=== PATIENT | male | born 1970 ===

== ENCOUNTER 2016-05-13 20:09 | Emergency (ER) | payer OTHER ==
[2016-05-13 20:26] VITALS: BMI 34.9
[2016-05-13] MEDS ORDERED: Azithromycin 500MG/NS 250ml 250 ML IVPB STA (22:40)
[2016-05-13] MEDS ORDERED: cefTRIAXone 1 gm 100 ML IVPB STA (22:40)
[2016-05-13 23:26] VITALS: O2SAT 97
[2016-05-13 23:29] LABS: ADD MANUAL DIFF? NO
[2016-05-13 23:34] LABS: BASO # 0.03 K/mm3 (0.0-2.0); BASO % 0.4 % (0.0-3.0); EOS # 0.2 (0.0-0.7); EOS % 2.8 % (1.5-5.0); GRAN # 4.79 (1.4-6.5); GRAN % 66.8 % (50.0-68.0); LYMPH # 1.7 (1.2-3.4); LYMPH % 23.2 % (22.0-35.0); MEAN CELL VOLUME 86.7 fL (80.0-105.0); MEAN CORPUSCULAR HEMOGLOBIN 29.4 pg (25.0-35.0); MEAN PLATELET VOLUME 10.3 fl (7.0-11.0); MONO # 0.5 (0.1-0.6); MONO % 6.8 % (1.0-6.0); PLATELET COUNT 216 10^3/uL (120.0-450.0); RED CELL DISTRIBUTION WIDTH 13.4 % (11.5-14.5); WHITE BLOOD COUNT 7.2 10^3/ul (4.5-11.0)
[2016-05-13 23:42] LABS: ALB/GLOB RATIO 1.2 (1.1-1.8); ALKALINE PHOSPHATASE 88 U/L (38-133); ALT/SGPT 29 U/L (7-56); AST/SGOT 24 U/L (15-59); BILIRUBIN,TOTAL 0.6 mg/dL (0.2-1.3); BLOOD UREA NITROGEN 18 mg/dL (7-21); CALCIUM 9.4 mg/dL (8.4-10.5); CARBON DIOXIDE 26 mmol/L (21-33); CHLORIDE 102 mmol/L (98-107); GFR AFRICAN-AMERICAN > 60; GLUCOSE,RANDOM 103 mg/dL (70-110); POTASSIUM 3.6 mmol/L (3.6-5.0); SODIUM 138 mmol/L (132-148); TOTAL PROTEIN 7.6 g/dL (5.8-8.3)
[2016-05-13 23:52] LABS: VENOUS BLOOD GAS BASE EXCESS 0.3 mmol/L (0.0-2.0); VENOUS BLOOD PH 7.35 (7.32-7.43)
--- NOTE | 2016-05-14 01:25 | ED PDOC ---
Arrival/HPI - General Chief Complaint: Cough, Cold, Congestion Time Seen by Provider: 05/13/16 20:49 Historian: Patient EM Caveat: Other - History of Present Illness Narrative History of Present Illness (Text): 45-year-old male presents today with a three-day history of productive cough fever and congestion. Patient states everyone at work has been sick with similar symptoms. Patient states he's been feeling short of breath after he coughs a lot. No medications were taken for fever at home. He denies nausea vomiting or diarrhea. He denies abdominal pain. Denies chest pain. Patient denies dizziness or weakness. Patient states he did not get his flu shot this year. Past Medical History - Provider Review Nursing Documentation Reviewed: Yes - Travel History Have you recently traveled outside [place] w/in the past 3 mons?: No - Infectious Disease Hx of Infectious Diseases: None - Tetanus Immunization Tetanus Immunization: Unknown - Cardiac Hx Cardiac Disorders: No - Pulmonary Hx Asthma: Yes - Neurological HX Cerebrovascular Accident: No - HEENT Hx HEENT Disorder: No - Renal Hx Renal Failure: No - Endocrine/Metabolic Hx Diabetes Mellitus Type 1: No Hx Diabetes Mellitus Type 2: No Hx Hypothyroidism: No - Hematological/Oncological Hx Blood Disorders: No Hx AIDS: No Hx Anemia: No Hx Cancer: No Hx Chemotherapy: No Hx Cirrhosis: No Hx Hemophilia: No Hx Hepatitis A: No Hx Hepatitis B: No Hx Hepatitis C: No Hx Metastasis: No Hx Shingles: No Hx Sickle Cell Disease: No Hx Unexplained Bleeding: No - Integumentary Hx Dermatological Disorder: No Hx Basal Cell Carcinoma: No Hx Eczema: No Hx Melanoma: No Hx Psoriasis: No Hx Squamous Cell Carcinoma: No - Musculoskeletal/Rheumatological Hx Arthritis: Yes - Gastrointestinal Hx Gastrointestinal Disorders: No Hx Colostomy: No Hx Crohn's Disease: No Hx Diverticulitis: No Hx Gall Bladder Disease: No Hx Gastroesophageal Reflux: No Hx Ileostomy: No Hx Liver Failure: No Hx Pancreatitis: No HX Swallowing Problems: No - Genitourinary/Gynecological Hx Genitourinary Disorders: No Hx Hematuria: No Hx Incontinence: No Hx Prostate Problems: No Hx Sexually Transmitted Diseases: No Hx Urinary Tract Infection: No - Psychiatric Hx Psychophysiologic Disorder: No Hx Depression: No Hx Emotional Abuse: No Hx Physical Abuse: No Hx Substance Use: No - Past Surgical History Past Surgical History: No Previous - Surgical History Hx Orthopedic Surgery: Yes (KNEE) - Anesthesia Hx Anesthesia: Yes Hx Anesthesia Reactions: No Hx Malignant Hyperthermia: No - Suicidal Assessment Feels Threatened In Home Enviroment: No Family/Social History - Physician Review Nursing Documentation Reviewed: Yes Family/Social History: Unknown Family HX Smoking Status: Current Some Days Smoker Hx Alcohol Use: Yes Hx Substance Use: No Hx Substance Use Treatment: No Allergies/Home Meds Allergies/Adverse Reactions: Allergies No Known Allergies Allergy (Verified 04/19/16 22:43) Review of Systems - Review of Systems Constitutional: Fatigue, Fevers ENT: Sore Throat, Sinus Congestion Respiratory: SOB, Cough Cardiovascular: absent: Chest Pain, Palpitations Gastrointestinal: absent: Abdominal Pain, Nausea, Vomiting Genitourinary Male: absent: Dysuria Musculoskeletal: absent: Arthralgias, Back Pain, Neck Pain Skin: absent: Rash, Pruritis Neurological: absent: Headache, Dizziness Psychiatric: absent: Anxiety, Depression Physical Exam Vital Signs Reviewed: Yes Vital Signs Temp Pulse Resp BP Pulse Ox 05/14/16 01:00 97 F L 77 16 131/70 97 05/13/16 23:25 98.0 F 97 H 20 129/73 97 05/13/16 21:31 100.9 F H 05/13/16 21:22 100.9 F H 05/13/16 20:26 100.9 F H 129 H 20 152/77 H 95 Temperature: Afebrile Blood Pressure: Hypertensive Pulse: Tachycardic Respiratory Rate: Normal Appearance: Positive for: Well-Appearing, Non-Toxic, Comfortable Pain Distress: None Mental Status: Positive for: Alert and Oriented X 3 - Systems Exam Head: Present: Atraumatic Mouth: Present: Moist Mucous Membranes Pharnyx: Present: Normal. No: ERYTHEMA, EXUDATE, TONSILS ENLARGED, Peritonsilar Swelling, Uvular Deviation, Muffled/Hoarse Voice Nose (External): Present: Atraumatic Nose (Internal): Present: Normal Inspection Neck: Present: Normal Range of Motion, Trachea Midline. No: Lymphadenopathy Respiratory/Chest: Present: Rhonchi. No: Clear to Auscultation, Respiratory Distress, Wheezes, Decreased Breath Sounds, Tender to Palpation Cardiovascular: Present: Tachycardic. No: Murmurs Abdomen: No: Tenderness Upper Extremity: Present: Normal ROM Lower Extremity: Present: Normal ROM Neurological: Present: GCS=15, Speech Normal Skin: Present: Warm, Dry, Normal Color. No: Rashes Psychiatric: Present: Alert, Oriented x 3 Medical Decision Making ED Course and Treatment: 45-year-old male with cough and fever 3 days Patient febrile, tachycardic, saturating at 95% on room air Chest x-ray shows a left lower lobe infiltrate CBC: wnl CMP: wnl Lactate: 1.0 Rocephin and Zithromax given IV Patient refused admission to the hospital states he feels much better and wants to go home. Patient reassessment: Patient's vitals have improved although he remains hypoxic at 92-94% on room air. Patient has been advised to not leave the emergency room but has decided to go AGAINST MEDICAL ADVICE. The patient possesses capacity to make decisions and has voiced understanding to all my warnings of potential worsening of the condition for which medical care was sought. I have discussed all known and potential risks and consequences to the patient leaving AGAINST MEDICAL ADVICE. Patient is leaving against medical advise. AMA form signed. witness by KRISHNA Mcmillan. I will give the patient a prescription for Zithromax Z-Randy. I've advised follow up his primary care physician on Monday. I've advised immediate return if he changes his mind or if any concerning symptoms develop. Patient states he will return if anything worsens. Impression: Pneumonia, hypoxia Return immediately if you wish to continue your care Zithromax Z-Randy take as directed Motrin every 6 hours as needed for pain/fever reduction Increase fluids Return immediately if symptoms worsen persist or if new concerning symptoms develop - Lab Interpretations Lab Results: 05/13/16 23:28 05/13/16 23:28 Lab Results 05/13/16 23:28: WBC 7.2, RBC 4.96, Hgb 14.6, Hct 43.0, MCV 86.7, MCH 29.4, MCHC 34.0, RDW 13.4, Plt Count 216, MPV 10.3, Gran % 66.8, Lymph % (Auto) 23.2, [place] % (Auto) 6.8 H, Eos % (Auto) 2.8, Baso % (Auto) 0.4, Gran # 4.79, Lymph # 1.7, [place] # 0.5, Eos # 0.2, Baso # 0.03, pO2 51, VBG pH 7.35, VBG pCO2 48.0, VBG HCO3 26.5, VBG Total CO2 28.0, VBG O2 Sat (Calc) 91.1 H, VBG Base Excess 0.3, VBG Potassium 3.6, Glucose 108, Lactate 1.0, FiO2 21.0, Sodium 139.0, Potassium 3.6, Chloride 105.0, Carbon Dioxide 26, Anion Gap 14, BUN 18, Creatinine 1.0, Est GFR ( Amer) > 60, Est GFR (Non-Af Amer) > 60, Random Glucose 103, Calcium 9.4, Total Bilirubin 0.6, AST 24, ALT 29, Alkaline Phosphatase 88, Total Protein 7.6, Albumin 4.1, Globulin 3.5, Albumin/Globulin Ratio 1.2, Venous Blood Potassium 3.6 05/13/16 20:58: Influenza Typ A,B (EIA) Negative for flu a/b - RAD Interpretation Radiology Orders: 05/13/16 20:50 CHEST TWO VIEWS (PA/LAT) [RAD] Stat - Medication Orders Current Medication Orders: Discontinued Medications Acetaminophen (Tylenol 325mg Tab) 975 mg PO STAT STA Stop: 05/13/16 20:52 Last Admin: 05/13/16 21:22 Dose: 975 MG MAR Pain/Vitals Document 05/13/16 21:22 HI (Rec: 05/13/16 21:23 HI [id number]) Pain Reassessment Is This A Pain ReAssessment? No Sleep Is patient sleeping during reassessment? No Presence of Pain Presence of Pain No Vitals Temperature (97.6 F-99.6 F) 100.9 F Temperature Source Oral Azithromycin (Zithromax 500mg In Ns) 250 mls @ 167 mls/hr IVPB STAT STA PRN Reason: Protocol Stop: 05/14/16 00:09 Last Admin: 05/14/16 00:28 Dose: 167 MLS/HR eMAR Start Stop Document 05/14/16 00:28 LAC (Rec: 05/14/16 00:29 LAC [id number]) Intravenous Solution Start Date 05/14/16 Start Time 00:29 End Date 05/14/16 End time 02:29 Total Infusion Time 120 Ceftriaxone Sodium (Rocephin 1 Gram Ivpb) 100 mls @ 200 mls/hr IVPB STAT STA PRN Reason: Protocol Stop: 05/13/16 23:09 Last Admin: 05/13/16 23:21 Dose: 200 MLS/HR eMAR Start Stop Document 05/13/16 23:21 HI (Rec: 05/13/16 23:21 RI [id number]) Intravenous Solution Start Date 05/13/16 Start Time 23:21 Ibuprofen (Motrin Tab) 600 mg PO STAT STA Stop: 05/13/16 21:19 Last Admin: 05/13/16 21:31 Dose: 600 MG MAR Pain/Vitals Document 05/13/16 21:31 HI (Rec: 05/13/16 21:31 RI [id number]) Vitals Temperature (97.6 F-99.6 F) 100.9 F Temperature Source Oral Disposition/Present on Arrival - Present on Arrival Any Indicators Present on Arrival: No History of DVT/PE: No History of Uncontrolled Diabetes: No Urinary Catheter: No History of Decub. Ulcer: No History Surgical Site Infection Following: None - Disposition Have Diagnosis and Disposition been Completed?: Yes Diagnosis: Pneumonia Disposition: AGAINST MEDICAL ADVICE Disposition Time: 01:52 Patient Plan: Other (AMA) Patient Problems: Current Active Problems Problem Status Diagnosed Pneumonia Acute Condition: GUARDED Discharge Instructions (ExitCare): Pneumonia (ED) Additional Instructions: Return immediately if you wish to continue your care Zithromax Z-Randy take as directed Motrin every 6 hours as needed for pain/fever reduction Increase fluids Return immediately if symptoms worsen persist or if new concerning symptoms develop Prescriptions: Ibuprofen [Motrin] 600 mg PO Q6H PRN #20 tab PRN Reason: pain/fever reduction Azithromycin [Zithromax] 250 mg PO DAILY #6 tab Referrals: PCP,NO [Primary Care Provider] - Follow up with primary [facility] [Outside] - Follow up with primary Ita Pope MD [Staff Provider] - Follow up with primary Forms: WORK NOTE
[2016-05-14 01:52] VITALS: BP 131/70; PULSE 77; RESP 16; TEMP 97
--- NOTE | 2016-05-14 13:15 | RAD ---
HISTORY: cough/fever COMPARISON: No prior. TECHNIQUE: Chest PA and lateral FINDINGS: LUNGS: No active pulmonary disease. PLEURA: No significant pleural effusion identified. No pneumothorax apparent. CARDIOVASCULAR: Normal. OSSEOUS STRUCTURES: No significant abnormalities. VISUALIZED UPPER ABDOMEN: Normal. OTHER FINDINGS: None. IMPRESSION: No active disease.
== END 2016-05-14 15:21 | disposition left against medical advice (07) ==
LOC: ED 20:09
DX: J18.9 Pneumonia, unspecified organism (principal); F17.210 Nicotine dependence, cigarettes, uncomplicated
CPT/HCPCS: 71020; 80053; 82803; 85025; 87040; 87804; 96365; 96366; 96375; 99284; J0456; J0696

== ENCOUNTER 2016-05-16 12:54 | Emergency (ER) | payer OTHER ==
[2016-05-16 13:04] VITALS: BMI 33.4
[2016-05-16 13:05] VITALS: PULSE 89; TEMP 98.2
[2016-05-16] MEDS ORDERED: Sodium Chloride 0.9% 1,000 ML IV STA (13:11)
[2016-05-16 13:35] LABS: ADD MANUAL DIFF? NO
[2016-05-16 13:41] LABS: BASO # 0.02 K/mm3 (0.0-2.0); BASO % 0.4 % (0.0-3.0); EOS # 0.3 (0.0-0.7); EOS % 5.4 % (1.5-5.0); GRAN # 2.32 (1.4-6.5); GRAN % 41.6 % (50.0-68.0); HEMATOCRIT 43.8 % (42.0-52.0); LYMPH # 2.8 (1.2-3.4); LYMPH % 50.6 % (22.0-35.0); MEAN CELL VOLUME 86.7 fL (80.0-105.0); MEAN CORPUSCULAR HEMOGLOBIN 29.7 pg (25.0-35.0); MEAN CORPUSCULAR HGB CONC 34.2 g/dl (31.0-37.0); MEAN PLATELET VOLUME 10.2 fl (7.0-11.0); MONO # 0.1 (0.1-0.6); PLATELET COUNT 196 10^3/uL (120.0-450.0); RED CELL DISTRIBUTION WIDTH 13.4 % (11.5-14.5); WHITE BLOOD COUNT 5.6 10^3/ul (4.5-11.0)
[2016-05-16 13:48] LABS: ALB/GLOB RATIO 1.3 (1.1-1.8); ALKALINE PHOSPHATASE 86 U/L (38-133); ALT/SGPT 35 U/L (7-56); AST/SGOT 37 U/L (15-59); BILIRUBIN,TOTAL 0.7 mg/dL (0.2-1.3); BLOOD UREA NITROGEN 12 mg/dL (7-21); CALCIUM 9.1 mg/dL (8.4-10.5); CARBON DIOXIDE 24 mmol/L (21-33); CHLORIDE 104 mmol/L (95-110); GFR AFRICAN-AMERICAN > 60; GLUCOSE,RANDOM 148 mg/dL (70-110); POTASSIUM 3.4 mmol/L (3.6-5.0); SODIUM 141 mmol/L (132-148); TOTAL PROTEIN 7.5 g/dL (5.8-8.3)
--- NOTE | 2016-05-16 14:37 | RAD ---
HISTORY: cough/fever COMPARISON: 05/13/2016 TECHNIQUE: Chest PA and lateral FINDINGS: LUNGS: No active pulmonary disease. PLEURA: No significant pleural effusion identified. No pneumothorax apparent. CARDIOVASCULAR: Normal. OSSEOUS STRUCTURES: No significant abnormalities. VISUALIZED UPPER ABDOMEN: Normal. OTHER FINDINGS: None. IMPRESSION: No active disease.
[2016-05-16] MEDS ORDERED: Albuterol-Ipratrop 3 mg / 0.5 (3 ml) UD IH STA (14:59)
--- NOTE | 2016-05-16 16:41 | ED PDOC ---
Arrival/HPI - General Chief Complaint: Cough, Cold, Congestion Time Seen by Provider: 05/16/16 13:11 Historian: Patient - History of Present Illness Narrative History of Present Illness (Text): 05/16/16 16:41 45-year-old male presents today with cough and wheezing. Patient was seen in the ER 2 days ago and signed out AGAINST MEDICAL ADVICE for pneumonia. Patient states he is feeling better but he went to get a physical today and they told him he needed medical clearance. Patient presents today complaining of wheezing and continued cough. Denies fevers at home. Patient states he is taking antibiotics as prescribed. No chest pain. No other complaints. Past Medical History - Provider Review Nursing Documentation Reviewed: Yes - Travel History Have you recently traveled outside [place] w/in the past 3 mons?: No - Infectious Disease Hx of Infectious Diseases: None - Tetanus Immunization Tetanus Immunization: Unknown - Cardiac Hx Cardiac Disorders: No - Pulmonary Hx Respiratory Disorders: Yes Hx Asthma: Yes - Neurological HX Cerebrovascular Accident: No - HEENT Hx HEENT Disorder: No - Renal Hx Renal Disorder: No Hx Renal Failure: No - Endocrine/Metabolic Hx Endocrine Disorders: No Hx Diabetes Mellitus Type 1: No Hx Diabetes Mellitus Type 2: No Hx Hypothyroidism: No - Hematological/Oncological Hx Blood Disorders: No Hx AIDS: No Hx Anemia: No Hx Cancer: No Hx Chemotherapy: No Hx Cirrhosis: No Hx Hemophilia: No Hx Hepatitis A: No Hx Hepatitis B: No Hx Hepatitis C: No Hx Metastasis: No Hx Shingles: No Hx Sickle Cell Disease: No Hx Unexplained Bleeding: No - Integumentary Hx Dermatological Disorder: No Hx Basal Cell Carcinoma: No Hx Eczema: No Hx Melanoma: No Hx Psoriasis: No Hx Squamous Cell Carcinoma: No - Musculoskeletal/Rheumatological Hx Musculoskeletal Disorders: Yes Hx Arthritis: Yes - Gastrointestinal Hx Gastrointestinal Disorders: No Hx Colostomy: No Hx Crohn's Disease: No Hx Diverticulitis: No Hx Gall Bladder Disease: No Hx Gastroesophageal Reflux: No Hx Ileostomy: No Hx Liver Failure: No Hx Pancreatitis: No HX Swallowing Problems: No - Genitourinary/Gynecological Hx Genitourinary Disorders: No Hx Hematuria: No Hx Incontinence: No Hx Prostate Problems: No Hx Sexually Transmitted Diseases: No Hx Urinary Tract Infection: No - Psychiatric Hx Psychophysiologic Disorder: No Hx Depression: No Hx Emotional Abuse: No Hx Physical Abuse: No Hx Substance Use: No - Past Surgical History Past Surgical History: No Previous - Surgical History Hx Orthopedic Surgery: Yes (KNEE) - Anesthesia Hx Anesthesia: Yes Hx Anesthesia Reactions: No Hx Malignant Hyperthermia: No - Suicidal Assessment Feels Threatened In Home Enviroment: No Family/Social History - Physician Review Nursing Documentation Reviewed: Yes Family/Social History: Unknown Family HX Smoking Status: Former Smoker Hx Alcohol Use: Yes Frequency of alcohol use: Socially Hx Substance Use: No Hx Substance Use Treatment: No Allergies/Home Meds Allergies/Adverse Reactions: Allergies No Known Allergies Allergy (Verified 05/16/16 13:04) Review of Systems - Review of Systems Constitutional: absent: Fatigue, Fevers ENT: Sinus Congestion. absent: Sore Throat Respiratory: Cough, Wheezing. absent: SOB Cardiovascular: absent: Chest Pain, Palpitations Gastrointestinal: absent: Abdominal Pain, Diarrhea, Nausea, Vomiting Genitourinary Male: absent: Dysuria Musculoskeletal: absent: Arthralgias, Back Pain, Neck Pain Neurological: absent: Headache, Dizziness Psychiatric: absent: Anxiety, Depression Physical Exam Vital Signs Reviewed: Yes Vital Signs Temp Pulse Resp BP Pulse Ox 05/16/16 13:05 98.2 F 89 16 121/84 95 Temperature: Afebrile Blood Pressure: Normal Pulse: Regular Respiratory Rate: Normal Appearance: Positive for: Well-Appearing, Non-Toxic, Comfortable Pain Distress: None Mental Status: Positive for: Alert and Oriented X 3 - Systems Exam Head: Present: Atraumatic Mouth: Present: Moist Mucous Membranes Neck: Present: Normal Range of Motion Respiratory/Chest: Present: Clear to Auscultation, Good Air Exchange. No: Respiratory Distress, Accessory Muscle Use Cardiovascular: Present: Regular Rate and Rhythm, Normal S1, S2. No: Murmurs Abdomen: No: Tenderness Lower Extremity: No: Edema Skin: Present: Warm, Dry, Normal Color. No: Rashes Psychiatric: Present: Alert, Oriented x 3 Medical Decision Making ED Course and Treatment: 05/16/16 Patient is nontoxic well-appearing in no distress. Vital signs are stable. CBC within normal limits CMP: glucose; 148 Chest x-ray no infiltrate or effusion Patient with wheezing bilaterally: Albuterol and prednisone given by mouth Patient reassessment: Lungs are clear to auscultation. Patient feeling better after medications. I advised continuing antibiotics as prescribed taking albuterol and prednisone as prescribed. Advised follow-up with the PMD. Advised immediate return is symptoms worsen persist or if new concerning symptoms develop Patient verbalizes understanding of discharge instructions and need for immediate followup. IMPRESSION; bronchitis Continue antibiotics as prescribed Use the nebulizer 3 times daily as needed for cough Prednisone daily 4 days Follow-up with primary care physician/clinic within the next 2 days Return immediately if symptoms worsen persist or if new concerning symptoms develop - Lab Interpretations Lab Results: 05/16/16 13:20 05/16/16 13:20 Lab Results 05/16/16 13:20: WBC 5.6 D, RBC 5.05, Hgb 15.0, Hct 43.8, MCV 86.7, MCH 29.7, MCHC 34.2, RDW 13.4, Plt Count 196, MPV 10.2, Gran % 41.6 L, Lymph % (Auto) 50.6 H, [place] % (Auto) 2.0, Eos % (Auto) 5.4 H, Baso % (Auto) 0.4, Gran # 2.32, Lymph # 2.8, [place] # 0.1, Eos # 0.3, Baso # 0.02, Sodium 141, Potassium 3.4 L, Chloride 104, Carbon Dioxide 24, Anion Gap 16, BUN 12, Creatinine 0.8, Est GFR ( Amer) > 60, Est GFR (Non-Af Amer) > 60, Random Glucose 148 H, Calcium 9.1, Total Bilirubin 0.7, AST 37, ALT 35, Alkaline Phosphatase 86, Total Protein 7.5, Albumin 4.3, Globulin 3.2, Albumin/Globulin Ratio 1.3 - RAD Interpretation Radiology Orders: 05/16/16 13:11 CHEST TWO VIEWS (PA/LAT) [RAD] Stat - Medication Orders Current Medication Orders: Discontinued Medications Albuterol/Ipratropium (Duoneb 3 Mg/0.5 Mg (3 Ml) Ud) 3 ml IH STAT STA Stop: 05/16/16 15:00 Last Admin: 05/16/16 15:37 Dose: 3 ML Sodium Chloride (Sodium Chloride 0.9%) 1,000 mls @ 999 mls/hr IV .Q1H1M STA Stop: 05/16/16 14:11 Last Admin: 05/16/16 13:30 Dose: 999 MLS/HR eMAR Start Stop Document 05/16/16 13:30 SE (Rec: 05/16/16 13:30 SE [id number]) Intravenous Solution Start Date 05/16/16 Start Time 13:30 Prednisone (Prednisone Tab) 60 mg PO STAT ONE Stop: 05/16/16 15:00 Last Admin: 05/16/16 15:36 Dose: 60 MG Disposition/Present on Arrival - Present on Arrival Any Indicators Present on Arrival: No History of DVT/PE: No History of Uncontrolled Diabetes: No Urinary Catheter: No History of Decub. Ulcer: No History Surgical Site Infection Following: None - Disposition Have Diagnosis and Disposition been Completed?: Yes Diagnosis: Bronchitis Disposition: HOME/ ROUTINE Disposition Time: 16:00 Patient Plan: Discharge Patient Problems: Current Active Problems Problem Status Diagnosed Pneumonia Acute Condition: GOOD Discharge Instructions (ExitCare): Acute Bronchitis (ED) Additional Instructions: Continue antibiotics as prescribed Use the nebulizer 3 times daily as needed for cough Prednisone daily 4 days Follow-up with primary care physician/clinic within the next 2 days Return immediately if symptoms worsen persist or if new concerning symptoms develop Prescriptions: Albuterol HFA [Ventolin HFA 90 mcg/actuation (8 g)] 2 puff IH [id number] PRN #1 inhaler PRN Reason: Cough Albuterol 0.083% [Albuterol 0.083% Inhal Teresa (2.5 mg/3 ml) UD] 1 vial IH TID PRN #1 packet PRN Reason: Cough predniSONE [predniSONE Tab] 3 tab PO DAILY #12 tab Referrals: [facility] [place]] - Follow up with primary Paul Weiner MD [Staff Provider] - Follow up with primary Forms: WORK NOTE
[2016-05-16 16:51] VITALS: BP 117/74; RESP 18; O2SAT 98
== END 2016-05-16 16:52 | disposition home or self-care (01) ==
LOC: ED 12:54
DX: J40 Bronchitis, not specified as acute or chronic (principal)
CPT/HCPCS: 71020; 80053; 85025; 99283; J7040

== ENCOUNTER 2016-06-27 09:41 | Emergency (ER) | payer OTHER ==
[2016-06-27 10:06] VITALS: BMI 32.3
[2016-06-27 10:10] VITALS: BP 131/84; PULSE 78; RESP 18; TEMP 98.2; O2SAT 97
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
--- NOTE | 2016-06-27 12:59 | RAD ---
PROCEDURE: Cervical Spine Radiographs. HISTORY: Pain. COMPARISON: None. FINDINGS: BONES: Alignment maintained. No fracture. Dens Intact. DISC SPACES: Normal. SOFT TISSUES: Normal. No prevertebral soft tissue swelling. OTHER FINDINGS: None. IMPRESSION: Normal cervical spine radiographs
== END 2016-06-27 12:44 | disposition home or self-care (01) ==
LOC: ED 09:41
DX: S13.9XXA Sprain of joints and ligaments of unspecified parts of neck, initial encounter (principal); V49.9XXA Car occupant (driver) (passenger) injured in unspecified traffic accident, initial encounter; M54.9 Dorsalgia, unspecified
CPT/HCPCS: 72050; 72110; 96372; 99284; J1885

== ENCOUNTER 2017-01-29 19:12 | Emergency (ER) | payer OTHER ==
[2017-01-29 19:12] VITALS: BMI 32.3
[2017-01-29 19:27] VITALS: BP 122/81; TEMP 99
[2017-01-29] MEDS ORDERED: Amoxicillin-Clav 875-125 mg Tab PO STA (19:34)
--- NOTE | 2017-01-29 19:34 | ED PDOC ---
Arrival/HPI - General Historian: Patient <Edward Connelly - Last Filed: 01/29/17 19:52> <Jonny Reyes - Last Filed: 01/29/17 20:00> - General Chief Complaint: Eye Problem Time Seen by Provider: 01/29/17 19:27 - History of Present Illness Narrative History of Present Illness (Text): 01/29/17 19:27 46 year old male, pmh including asthma, nkda, complaining of lt. upper eyelid swelling and pain x 1 day with no fall or trauma. Aching pain, no painful movement of the eye, no change in vision, no fever or chills, no palpitation, no cough, no shortness of breath, no numbness or tingling, n other medical or psychological complaints. (Edward Connelly) Past Medical History - Provider Review Nursing Documentation Reviewed: Yes - Infectious Disease Hx of Infectious Diseases: None - Tetanus Immunization Tetanus Immunization: Unknown - Cardiac Hx Cardiac Disorders: No - Pulmonary Hx Respiratory Disorders: Yes Hx Asthma: Yes - Neurological HX Cerebrovascular Accident: No - HEENT Hx HEENT Disorder: No - Renal Hx Renal Disorder: No Hx Renal Failure: No - Endocrine/Metabolic Hx Endocrine Disorders: No Hx Diabetes Mellitus Type 1: No Hx Diabetes Mellitus Type 2: No Hx Hypothyroidism: No - Hematological/Oncological Hx Blood Disorders: No Hx AIDS: No Hx Anemia: No Hx Cancer: No Hx Chemotherapy: No Hx Cirrhosis: No Hx Hemophilia: No Hx Hepatitis A: No Hx Hepatitis B: No Hx Hepatitis C: No Hx Metastasis: No Hx Shingles: No Hx Sickle Cell Disease: No Hx Unexplained Bleeding: No - Integumentary Hx Dermatological Disorder: No Hx Basal Cell Carcinoma: No Hx Eczema: No Hx Melanoma: No Hx Psoriasis: No Hx Squamous Cell Carcinoma: No - Musculoskeletal/Rheumatological Hx Musculoskeletal Disorders: Yes Hx Arthritis: Yes - Gastrointestinal Hx Gastrointestinal Disorders: No Hx Colostomy: No Hx Crohn's Disease: No Hx Diverticulitis: No Hx Gall Bladder Disease: No Hx Gastroesophageal Reflux: No Hx Ileostomy: No Hx Liver Failure: No Hx Pancreatitis: No HX Swallowing Problems: No - Genitourinary/Gynecological Hx Genitourinary Disorders: No Hx Hematuria: No Hx Incontinence: No Hx Prostate Problems: No Hx Sexually Transmitted Diseases: No Hx Urinary Tract Infection: No - Psychiatric Hx Psychophysiologic Disorder: No Hx Depression: No Hx Emotional Abuse: No Hx Physical Abuse: No Hx Substance Use: No - Past Surgical History Past Surgical History: No Previous - Surgical History Hx Orthopedic Surgery: Yes (KNEE) - Anesthesia Hx Anesthesia: Yes Hx Anesthesia Reactions: No Hx Malignant Hyperthermia: No - Suicidal Assessment Feels Threatened In Home Enviroment: No <Edward Connelly - Last Filed: 01/29/17 19:52> Family/Social History - Physician Review Nursing Documentation Reviewed: Yes Family/Social History: Unknown Family HX Smoking Status: Light Smoker < 10 Cigarettes Daily Hx Alcohol Use: Yes Hx Substance Use: No Hx Substance Use Treatment: No <Edward Connelly - Last Filed: 01/29/17 19:52> Allergies/Home Meds <Edward Connelly - Last Filed: 01/29/17 19:52> <Jonny Reyes - Last Filed: 01/29/17 20:00> Allergies/Adverse Reactions: Allergies No Known Allergies Allergy (Verified 01/29/17 19:25) Review of Systems - Review of Systems Constitutional: absent: Fatigue, Fevers Eyes: absent: Vision Changes ENT: absent: Hearing Changes Respiratory: absent: SOB, Cough Cardiovascular: absent: Chest Pain Gastrointestinal: absent: Abdominal Pain, Nausea, Vomiting Skin: Rash, Cellulitis. absent: Pruritis, Skin Lesions, Laceration, Abscess, Ulcer Neurological: absent: Headache, Dizziness Psychiatric: absent: Anxiety, Depression <Edward Connelly - Last Filed: 01/29/17 19:52> Physical Exam Vital Signs Reviewed: Yes Temperature: Afebrile Blood Pressure: Normal Pulse: Regular Respiratory Rate: Normal Appearance: Positive for: Well-Appearing, Non-Toxic, Comfortable Pain Distress: Mild Mental Status: Positive for: Alert and Oriented X 3 - Systems Exam Head: Present: Atraumatic, Normocephalic Pupils: Present: PERRL, Other (Facial: lt. upper eyelid mild swelling and erythematous noted, no painful movement of the bilateral eyes, no entractment or gaze. ) Extroacular Muscles: Present: EOMI Conjunctiva: Present: Normal Ears: Present: NORMAL TM, Normal Canal. No: Erythema Mouth: Present: Moist Mucous Membranes Neck: Present: Normal Range of Motion Respiratory/Chest: Present: Clear to Auscultation, Good Air Exchange. No: Respiratory Distress, Accessory Muscle Use Cardiovascular: Present: Regular Rate and Rhythm, Normal S1, S2. No: Murmurs Abdomen: Present: Normal Bowel Sounds. No: Tenderness, Distention, Peritoneal Signs Back: Present: Normal Inspection Upper Extremity: Present: Normal Inspection. No: Cyanosis, Edema Lower Extremity: Present: Normal Inspection. No: Edema Neurological: Present: GCS=15, Speech Normal, Motor Func Grossly Intact, Gait Normal, Memory Normal Skin: Present: Warm, Dry, Normal Color. No: Rashes Psychiatric: Present: Alert, Oriented x 3, Normal Insight, Normal Concentration <Edward Connelly - Last Filed: 01/29/17 19:52> Vital Signs Temp Pulse Resp BP Pulse Ox 01/29/17 19:49 88 17 97 01/29/17 19:44 97 01/29/17 19:26 99.0 F 96 H 16 122/81 94 L Medical Decision Making <Edward Connelly - Last Filed: 01/29/17 19:52> <Jonny Reyes - Last Filed: 01/29/17 20:00> ED Course and Treatment: 01/29/17 19:36 -motrin and augmentin -Discharge home with motrin, augmentin, erythromycin opthalmic, cold compress, follow up with your own pmd and opthalmologist within 2 days, return to the Emergency room for any new or worsening signs or symptoms. (Edward Connelly) - Medication Orders Current Medication Orders: Discontinued Medications Amoxicillin/Clavulanate Potassium (Augmentin 875 Mg-125 Mg Tab) 1 tab PO STAT STA PRN Reason: Protocol Stop: 01/29/17 19:35 Last Admin: 01/29/17 19:41 Dose: 1 tab Ibuprofen (Motrin Tab) 600 mg PO STAT STA Stop: 01/29/17 19:35 Last Admin: 01/29/17 19:41 Dose: 600 mg MAR Pain/Vitals Document 01/29/17 19:41 SC (Rec: 01/29/17 19:41 SC [id number]) Pain Reassessment Is This A Pain ReAssessment? No Sleep Is patient sleeping during reassessment? No Presence of Pain Presence of Pain Yes Pain Scale Used Pain Scale Used Numeric Location Intensity 5 - PA / PHARMACIST TECHNICIAN / Resident Statement MD/DO has reviewed & agrees with the documentation as recorded. <Connelly,Edward Q - Last Filed: 01/29/17 19:52> - PA / PHARMACIST TECHNICIAN / Resident Statement MD/DO has reviewed & agrees with the documentation as recorded. <Jonny Reyes - Last Filed: 01/29/17 20:00> Disposition/Present on Arrival - Present on Arrival Any Indicators Present on Arrival: No History of DVT/PE: No History of Uncontrolled Diabetes: No Urinary Catheter: No History of Decub. Ulcer: No History Surgical Site Infection Following: None - Disposition Have Diagnosis and Disposition been Completed?: Yes Disposition Time: 19:37 Patient Plan: Discharge <Edward Connelly - Last Filed: 01/29/17 19:52> <Jonny Reyes - Last Filed: 01/29/17 20:00> - Disposition Diagnosis: Preseptal cellulitis of left upper eyelid Disposition: HOME/ ROUTINE Condition: GOOD Additional Instructions: -Discharge home with motrin, augmentin, erythromycin opthalmic, cold compress, follow up with your own pmd and opthalmologist within 2 days, return to the Emergency room for any new or worsening signs or symptoms. Prescriptions: Amoxicillin/Clavulanate [Augmentin 875 MG-125 MG] 1 tab PO BID #20 tab Erythromycin 0.5% [Ilytocin] 0.5 in OP Q4 #5 g Ibuprofen [Motrin] 600 mg PO TID PRN #30 tab PRN Reason: Other Referrals: [facility] [Outside] - Follow up with primary Kimani Diaz [Staff Provider] - Follow up with primary Forms: WORK NOTE
[2017-01-29 19:54] VITALS: PULSE 88; RESP 17; O2SAT 97
== END 2017-01-29 19:44 | disposition home or self-care (01) ==
LOC: ED 19:12
DX: L03.213 Periorbital cellulitis (principal)

== ENCOUNTER 2017-06-13 20:51 | Emergency (ER) | payer SELFPAY ==
[2017-06-13 21:12] VITALS: BP 128/88; PULSE 100; RESP 18; TEMP 98.6; O2SAT 96; BMI 33.4
--- NOTE | 2017-06-13 21:46 | ED PDOC ---
Arrival/HPI <AmyJonny - Last Filed: 06/14/17 01:08> - General Historian: Patient <Alexis Wan - Last Filed: 06/15/17 23:19> - General Time Seen by Provider: 06/13/17 21:30 - History of Present Illness Narrative History of Present Illness (Text): 06/13/17 21:41 46yo male with PMHx of Asthma present with 3days history of LLQ abdominal pain. Notes that pain is sharp and usually worse at night. He denies nausea, vomiting , diarrhea, constipation, urinary symptoms, fever, chills, back pain, hematuria , any other complaint. (Alexis Wan) Past Medical History - Provider Review Nursing Documentation Reviewed: Yes - Infectious Disease Hx of Infectious Diseases: None - Tetanus Immunization Tetanus Immunization: Unknown - Cardiac Hx Cardiac Disorders: No - Pulmonary Hx Respiratory Disorders: Yes Hx Asthma: Yes - Neurological HX Cerebrovascular Accident: No - HEENT Hx HEENT Disorder: No - Renal Hx Renal Disorder: No Hx Renal Failure: No - Endocrine/Metabolic Hx Endocrine Disorders: No Hx Diabetes Mellitus Type 1: No Hx Diabetes Mellitus Type 2: No Hx Hypothyroidism: No - Hematological/Oncological Hx Blood Disorders: No Hx AIDS: No Hx Anemia: No Hx Cancer: No Hx Chemotherapy: No Hx Cirrhosis: No Hx Hemophilia: No Hx Hepatitis A: No Hx Hepatitis B: No Hx Hepatitis C: No Hx Metastasis: No Hx Shingles: No Hx Sickle Cell Disease: No Hx Unexplained Bleeding: No - Integumentary Hx Dermatological Disorder: No Hx Basal Cell Carcinoma: No Hx Eczema: No Hx Melanoma: No Hx Psoriasis: No Hx Squamous Cell Carcinoma: No - Musculoskeletal/Rheumatological Hx Musculoskeletal Disorders: Yes Hx Arthritis: Yes - Gastrointestinal Hx Gastrointestinal Disorders: No Hx Colostomy: No Hx Crohn's Disease: No Hx Diverticulitis: No Hx Gall Bladder Disease: No Hx Gastroesophageal Reflux: No Hx Ileostomy: No Hx Liver Failure: No Hx Pancreatitis: No HX Swallowing Problems: No - Genitourinary/Gynecological Hx Genitourinary Disorders: No Hx Hematuria: No Hx Incontinence: No Hx Prostate Problems: No Hx Sexually Transmitted Diseases: No Hx Urinary Tract Infection: No - Psychiatric Hx Psychophysiologic Disorder: No Hx Depression: No Hx Emotional Abuse: No Hx Physical Abuse: No Hx Substance Use: No - Past Surgical History Past Surgical History: No Previous - Surgical History Hx Orthopedic Surgery: Yes (KNEE) - Anesthesia Hx Anesthesia: Yes Hx Anesthesia Reactions: No Hx Malignant Hyperthermia: No - Suicidal Assessment Feels Threatened In Home Enviroment: No <Alexis Wan - Last Filed: 06/15/17 23:19> Family/Social History - Physician Review Nursing Documentation Reviewed: Yes Family/Social History: Unknown Family HX Smoking Status: Light Smoker < 10 Cigarettes Daily Hx Alcohol Use: Yes Hx Substance Use: No Hx Substance Use Treatment: No <Alexis Wan A - Last Filed: 06/15/17 23:19> Allergies/Home Meds <Jonny Reyes - Last Filed: 06/14/17 01:08> <Alexis Wan A - Last Filed: 06/15/17 23:19> Allergies/Adverse Reactions: Allergies No Known Allergies Allergy (Verified 06/14/17 01:48) Review of Systems - Physician Review All systems were reviewed & negative as marked: Yes - Review of Systems Constitutional: Normal Eyes: Normal ENT: Normal Respiratory: Normal Cardiovascular: Normal Gastrointestinal: Abdominal Pain. absent: Constipation, Diarrhea, Nausea, Vomiting, Hematemesis Genitourinary Male: Normal Musculoskeletal: Normal Skin: Normal Neurological: Normal Endocrine: Normal Hemo/Lymphatic: Normal Psychiatric: Normal <Alexis Wan A - Last Filed: 06/15/17 23:19> Physical Exam Vital Signs Reviewed: Yes Temperature: Afebrile Blood Pressure: Normal Pulse: Regular Respiratory Rate: Normal Appearance: Positive for: Well-Appearing, Non-Toxic, Comfortable Pain Distress: None Mental Status: Positive for: Alert and Oriented X 3 - Systems Exam Head: Present: Atraumatic, Normocephalic Pupils: Present: PERRL Extroacular Muscles: Present: EOMI Conjunctiva: Present: Normal Mouth: Present: Moist Mucous Membranes Neck: Present: Normal Range of Motion Respiratory/Chest: Present: Clear to Auscultation, Good Air Exchange. No: Respiratory Distress, Accessory Muscle Use Cardiovascular: Present: Regular Rate and Rhythm, Normal S1, S2. No: Murmurs Abdomen: Present: Tenderness (LLQ), Distention (Distended secondary to body habitus), Normal Bowel Sounds, Guarding (Voluntary), Other (soft). No: Peritoneal Signs, Rebound, McBurney's Point Tender, Rovsing's Sign Present Back: Present: Normal Inspection Upper Extremity: Present: Normal Inspection. No: Cyanosis, Edema Lower Extremity: Present: Normal Inspection. No: Edema Neurological: Present: GCS=15, CN II-XII Intact, Speech Normal Skin: Present: Warm, Dry, Normal Color. No: Rashes Psychiatric: Present: Alert, Oriented x 3, Normal Insight, Normal Concentration <Alexis Wan - Last Filed: 06/15/17 23:19> Vital Signs Temp Pulse Resp BP Pulse Ox 06/13/17 21:11 98.6 F 100 H 18 128/88 96 Medical Decision Making <Jonny Reyes - Last Filed: 06/14/17 01:08> <Alexis Wan - Last Filed: 06/15/17 23:19> ED Course and Treatment: 06/15/17 23:18 PT presented for stated history. He was not in any distress. Hemodynamically stable. UA negative Abdominal/Pelvic CT IMPRESSION: No acute solid visceral or bowel abnormality, no CT findings of appendicitis or diverticulitis; small inflamed nodule in the left lower quadrant may represent unusual appearance of epiploic appendigitis Additional nonemergent findings as described above. Result was DW the pt. He was Dc home with flagyl. Referred to a GI. (Alexis Wan) - Lab Interpretations Lab Results: Lab Results 06/14/17 01:05: Urine Color Yellow, Urine Appearance Clear, Urine pH 6.0, Ur Specific [place] >= 1.030, Urine Protein Trace H, Urine Glucose (UA) Negative, Urine Ketones Negative, Urine Blood Negative, Urine Nitrate Negative, Urine Bilirubin Negative, Urine Urobilinogen 0.2, Ur Leukocyte Esterase Negative, Urine RBC 0 - 2, Urine WBC 0 - 2, Ur Epithelial Cells 0 - 2, Urine Other Mucus - RAD Interpretation Radiology Orders: 06/13/17 21:30 ABD & PELVIS W/O PO OR IV CONT [CT] Stat - Medication Orders Current Medication Orders: Discontinued Medications Ketorolac Tromethamine (Toradol) 60 mg IM STAT STA Stop: 06/13/17 21:32 Last Admin: 06/13/17 21:56 Dose: 60 mg MAR Pain Assessment Document 06/13/17 21:56 OCS (Rec: 06/13/17 21:57 OCS [id number]) Pain Reassessment Is this a pain reassessment? Yes Sleep Is patient sleeping during reassessment? No Presence of Pain Presence of Pain Yes Pain Scale Used Pain Scale Used Numeric Location Left, Right or Bilateral Bilateral Upper or Lower Lower Pain Location Body Site Abdomen Description Description Constant Intensity of Pain at present 7 Pain Behavior Facial Grimacing Aggravating Factors ADL's IM Administration Charges Document 06/13/17 21:56 OCS (Rec: 06/13/17 21:57 OCS [id number]) Injection Site MAR Injection Site Left Arm Charges for Administration # of IM Administrations 1 Metronidazole (Flagyl) 500 mg PO STAT STA PRN Reason: Protocol Stop: 06/14/17 01:30 Last Admin: 06/14/17 01:37 Dose: 500 mg - PA / DATA MANAGEMENT SPECIALIST / Resident Statement / has reviewed & agrees with the documentation as recorded. <Jonny Reyes - Last Filed: 06/14/17 01:08> Disposition/Present on Arrival <Jonny Reyes - Last Filed: 06/14/17 01:08> - Present on Arrival Any Indicators Present on Arrival: No History of DVT/PE: No History of Uncontrolled Diabetes: No Urinary Catheter: No History Surgical Site Infection Following: None - Disposition Have Diagnosis and Disposition been Completed?: Yes Disposition Time: 01:30 Patient Plan: Discharge <Alexis Wan - Last Filed: 06/15/17 23:19> - Disposition Diagnosis: Abdominal pain Disposition: HOME/ ROUTINE Condition: STABLE Discharge Instructions (ExitCare): Acute Abdomen (Belly Pain) Additional Instructions: Follow up with the clinic/Customer Support Advisor Return to ED for any new or worsening symptoms Prescriptions: metroNIDAZOLE [Flagyl] 500 mg PO BID #14 tab traMADol [Ultram] 50 mg PO TID #9 tab Referrals: PCP,NO [Primary Care Provider] - Follow up with primary Shashi Harris MD [Staff Provider] - Follow up with primary Forms: [employer] (Frisian)
--- NOTE | 2017-06-13 23:29 | CT ---
EXAM: CT Abdomen and Pelvis Without Intravenous Contrast EXAM DATE/TIME: 06/13/2017 9:30 PM CLINICAL HISTORY: 46 years old, male; Pain; Abdominal pain; Localized; Lower; Additional info: Llq /pelvic pain TECHNIQUE: Axial computed tomography images of the abdomen and pelvis without intravenous contrast. All CT scans at this facility use one or more dose reduction techniques, viz.: automated exposure control; ma/kV adjustment per patient size (including targeted exams where dose is matched to indication; i.e. head); or iterative reconstruction technique. Coronal and sagittal reformatted images were created and reviewed. COMPARISON: There are no prior studies for comparison. FINDINGS: Lung bases: The heart size is normal. Lung bases are well inflated. There is minimal atelectasis/scarring in the middle lobe and lingula. ABDOMEN: Liver: unremarkable Gallbladder and bile ducts: unremarkable Pancreas: unremarkable Spleen: unremarkable Adrenals: unremarkable Kidneys and ureters: unremarkable Stomach and bowel: Stomach is incompletely distended. There is a duodenal diverticulum. Rotation is normal. There is fluid and air throughout the small bowel. There is no small bowel obstruction. Ileocecal region is unremarkable. Appendix and terminal ileum are unremarkable. Colon is incompletely distended which limits evaluation. There is sigmoid diverticulosis PELVIS: Appendix: See stomach and bowel Bladder: unremarkable Reproductive: Seminal vesicles and prostate are unremarkable. ABDOMEN and PELVIS: Intraperitoneal space: There is no free air or free fluid. Bones/joints: There are no acute osseous abnormalities. Soft tissues: There is a small fat containing umbilical hernia. There is a 10 x 12 mm nodule in the fat of the anterior left lower quadrant, image 131 series 3, image 40 series 601. Nodule is mildly inflamed. There is minimal inflammation in the adjacent fat. Vasculature: There are calcified phleboliths. Vascular structures are unremarkable. Lymph nodes: There is no pathologic adenopathy. IMPRESSION: No acute solid visceral or bowel abnormality, no CT findings of appendicitis or diverticulitis; small inflamed nodule in the left lower quadrant may represent unusual appearance of epiploic appendigitis Additional nonemergent findings as described above.
[2017-06-14 01:12] LABS: URINE BILIRUBIN NEGATIVE (NEGATIVE); URINE BLOOD NEGATIVE (NEGATIVE); URINE GLUCOSE (UA) NEGATIVE (NEGATIVE); URINE LEUKOCYTE ESTERASE NEGATIVE Leu/uL (NEGATIVE); URINE PROTEIN TRACE mg/dL (<30 mg/dL); URINE UROBILINOGEN 0.2 E.U./dL (<1 E.U./dL)
[2017-06-14 01:13] LABS: URINE APPEARANCE CLEAR (CLEAR); URINE COLOR YELLOW (YELLOW)
[2017-06-14 01:24] LABS: URINE EPITHELIAL CELLS 0 - 2 /hpf (0-5); URINE RBC 0 - 2 /hpf (0-2); URINE WBC 0 - 2 /hpf (0-6)
== END 2017-06-14 01:39 | disposition home or self-care (01) ==
LOC: ED 20:51
DX: R10.32 Left lower quadrant pain (principal); F17.210 Nicotine dependence, cigarettes, uncomplicated
CPT/HCPCS: 74176; 81001; 96372; 99283; J1885

== ENCOUNTER 2017-10-16 08:59 | Emergency (ER) | payer SELFPAY ==
[2017-10-16 09:11] VITALS: BMI 34.2
[2017-10-16 09:50] LABS: BASO # 0.02 K/mm3 (0.0-2.0); BASO % 0.2 % (0.0-3.0); EOS # 0.2 (0.0-0.7); EOS % 2.5 % (1.5-5.0); GRAN # 5.66 (1.4-6.5); GRAN % 59.6 % (50.0-68.0); HEMOGLOBIN 15.2 g/dL (14.0-18.0); LYMPH # 3.2 (1.2-3.4); LYMPH % 33.6 % (22.0-35.0); MEAN CORPUSCULAR HEMOGLOBIN 29.9 pg (25.0-35.0); MEAN CORPUSCULAR HGB CONC 34.8 g/dl (31.0-37.0); MEAN PLATELET VOLUME 10.7 fl (7.0-11.0); MONO # 0.4 (0.1-0.6); MONO % 4.1 % (1.0-6.0); RBC 5.08 10^6/uL (3.5-6.1); RED CELL DISTRIBUTION WIDTH 13.4 % (11.5-14.5); WHITE BLOOD COUNT 9.5 10^3/ul (4.5-11.0)
[2017-10-16 09:59] LABS: INR 0.95; PARTIAL THROMBOPLASTIN TIME 34.1 Seconds (25.1-36.5); PROTHROMBIN TIME 10.9 SECONDS (9.4-12.5)
[2017-10-16 10:23] LABS: ALB/GLOB RATIO 1.5 (1.1-1.8); ALBUMIN 4.2 g/dL (3.0-4.8); ALT/SGPT 24 U/L (7-56); AST/SGOT 22 U/L (17-59); BLOOD UREA NITROGEN 10 mg/dL (7-21); CALCIUM 9.1 mg/dL (8.4-10.5); GFR NON-AFRICAN AMERICAN > 60
[2017-10-16 10:35] LABS: TROPONIN I < 0.01 ng/mL
[2017-10-16 10:40] LABS: B-TYPE NATRIURETIC PEPTIDE < 11.1 pg/mL (0-450)
[2017-10-16 11:41] VITALS: RESP 18
[2017-10-16] MEDS ORDERED: Oxycodone/Acetaminophen 5/325 mg Tab PO STA (12:10)
--- NOTE | 2017-10-16 12:23 | RAD ---
Date of service: 10/16/2017 PROCEDURE: Radiographs of the Chest and Right Ribs. HISTORY: right rib COMPARISON: Comparison is made with 05/16/2016 TECHNIQUE: Frontal radiograph of the chest and multiple oblique radiographs of the right ribs were obtained. FINDINGS: RIGHT RIBS: No fracture or focal lesion visualized. LUNGS: Clear. PLEURA: No pneumothorax or pleural fluid. CARDIOVASCULAR: Normal sized heart. No pulmonary vascular congestion. OTHER FINDINGS: None. IMPRESSION: Unremarkable radiographs of the chest and right ribs. No right rib fracture.
--- NOTE | 2017-10-16 12:29 | ED PDOC ---
Arrival/HPI - General Chief Complaint: Chest Pain Time Seen by Provider: 10/16/17 09:26 Historian: Patient - History of Present Illness Narrative History of Present Illness (Text): 10/16/17 12:25 46yo male with no pmhx who present with complaint of right sided rib pain x one week. Notes that pain is worse today with deep inspiration and movement. He did not take any medication for the pain. Denies SOB, diaphoresis, fever, chills, nausea, vomiting, recent travel/surgery, any other complaint. Past Medical History - Provider Review Nursing Documentation Reviewed: Yes - Infectious Disease Hx of Infectious Diseases: None - Tetanus Immunization Tetanus Immunization: Unknown - Cardiac Hx Cardiac Disorders: No - Pulmonary Hx Respiratory Disorders: Yes Hx Asthma: Yes - Neurological HX Cerebrovascular Accident: No Hx Transient Ischemic Attacks (TIA): Yes - HEENT Hx HEENT Disorder: No - Renal Hx Renal Disorder: No Hx Renal Failure: No - Endocrine/Metabolic Hx Endocrine Disorders: No Hx Diabetes Mellitus Type 1: No Hx Diabetes Mellitus Type 2: No Hx Hypothyroidism: No - Hematological/Oncological Hx Blood Disorders: No Hx AIDS: No Hx Anemia: No Hx Cancer: No Hx Chemotherapy: No Hx Cirrhosis: No Hx Hemophilia: No Hx Hepatitis A: No Hx Hepatitis B: No Hx Hepatitis C: No Hx Metastasis: No Hx Shingles: No Hx Sickle Cell Disease: No Hx Unexplained Bleeding: No - Integumentary Hx Dermatological Disorder: No Hx Basal Cell Carcinoma: No Hx Eczema: No Hx Melanoma: No Hx Psoriasis: No Hx Squamous Cell Carcinoma: No - Musculoskeletal/Rheumatological Hx Musculoskeletal Disorders: Yes Hx Arthritis: Yes - Gastrointestinal Hx Gastrointestinal Disorders: No Hx Colostomy: No Hx Crohn's Disease: No Hx Diverticulitis: No Hx Gall Bladder Disease: No Hx Gastroesophageal Reflux: No Hx Ileostomy: No Hx Liver Failure: No Hx Pancreatitis: No HX Swallowing Problems: No - Genitourinary/Gynecological Hx Genitourinary Disorders: No Hx Hematuria: No Hx Incontinence: No Hx Prostate Problems: No Hx Sexually Transmitted Diseases: No Hx Urinary Tract Infection: No - Psychiatric Hx Psychophysiologic Disorder: No Hx Depression: No Hx Emotional Abuse: No Hx Physical Abuse: No Hx Substance Use: No - Past Surgical History Past Surgical History: No Previous - Surgical History Hx Orthopedic Surgery: Yes (KNEE) - Anesthesia Hx Anesthesia: Yes Hx Anesthesia Reactions: No Hx Malignant Hyperthermia: No - Suicidal Assessment Feels Threatened In Home Enviroment: No Family/Social History - Physician Review Nursing Documentation Reviewed: Yes Family/Social History: Unknown Family HX Smoking Status: Light Smoker < 10 Cigarettes Daily Hx Alcohol Use: Yes Hx Substance Use: No Hx Substance Use Treatment: No Allergies/Home Meds Allergies/Adverse Reactions: Allergies No Known Allergies Allergy (Verified 10/16/17 09:08) Review of Systems - Physician Review All systems were reviewed & negative as marked: Yes - Review of Systems Constitutional: Normal Eyes: Normal ENT: Normal Respiratory: Normal Cardiovascular: Normal Gastrointestinal: Normal Genitourinary Male: Normal Musculoskeletal: Arthralgias (right ribs pain) Skin: Normal Neurological: Normal Endocrine: Normal Hemo/Lymphatic: Normal Psychiatric: Normal Physical Exam Vital Signs Reviewed: Yes Vital Signs Temp Pulse Resp BP Pulse Ox 10/16/17 12:47 98 F 68 18 121/72 97 10/16/17 11:40 73 18 126/69 96 10/16/17 09:08 98.1 F 102 H 19 135/92 H 94 L Temperature: Afebrile Blood Pressure: Normal Pulse: Regular Respiratory Rate: Normal Appearance: Positive for: Well-Appearing, Non-Toxic, Comfortable, Other ( Morbidly obese) Pain Distress: None Mental Status: Positive for: Alert and Oriented X 3 - Systems Exam Head: Present: Atraumatic, Normocephalic Pupils: Present: PERRL Extroacular Muscles: Present: EOMI Conjunctiva: Present: Normal Mouth: Present: Moist Mucous Membranes Neck: Present: Normal Range of Motion Respiratory/Chest: Present: Clear to Auscultation, Good Air Exchange, Tender to Palpation (Focal right anterior ribs tenderness). No: Respiratory Distress, Accessory Muscle Use, Wheezes, Decreased Breath Sounds, Rales, Retracting, Rhonchi Cardiovascular: Present: Regular Rate and Rhythm, Normal S1, S2. No: Murmurs Abdomen: No: Tenderness, Distention, Peritoneal Signs Back: Present: Normal Inspection Upper Extremity: Present: Normal Inspection. No: Cyanosis, Edema Lower Extremity: Present: Normal Inspection. No: Edema Neurological: Present: GCS=15, CN II-XII Intact, Speech Normal Skin: Present: Warm, Dry, Normal Color. No: Rashes Psychiatric: Present: Alert, Oriented x 3, Normal Insight, Normal Concentration Medical Decision Making ED Course and Treatment: 10/16/17 18:49 46yo male who present with right ribs pain. His pain was controlled with medication in ED. He had focal tenderness over the right anterior ribs. EKG NSR @96bpm Lab was unremarkable Right ribs/chest xray IMPRESSION: Unremarkable radiographs of the chest and right ribs. No right rib fracture. Result was DW the pt and he was DC home with tramadol, baclofen and ibuprofen for pain. Referred to his PMD. - Lab Interpretations Lab Results: 10/16/17 09:20 10/16/17 10:05 Lab Results 10/16/17 10:05: Sodium 139, Potassium 4.3, Chloride 106, Carbon Dioxide 24, Anion Gap 13, BUN 10, Creatinine 0.8, Est GFR ( Amer) > 60, Est GFR (Non- Af Amer) > 60, Random Glucose 116 H, Calcium 9.1, Magnesium 1.9, Total Bilirubin 0.3, AST 22, ALT 24, Alkaline Phosphatase 113, Lactate Dehydrogenase 359, Total Creatine Kinase 138, Troponin I < 0.01, NT-Pro-B Natriuret Pep < 11.1 , Total Protein 7.0, Albumin 4.2, Globulin 2.8, Albumin/Globulin Ratio 1.5 10/16/17 09:20: PT 10.9, INR 0.95, APTT 34.1 10/16/17 09:20: WBC 9.5 D, RBC 5.08, Hgb 15.2, Hct 43.7, MCV 86.0, MCH 29.9, MCHC 34.8, RDW 13.4, Plt Count 252, MPV 10.7, Gran % 59.6, Lymph % (Auto) 33.6, Cannon % (Auto) 4.1, Eos % (Auto) 2.5, Baso % (Auto) 0.2, Gran # 5.66, Lymph # ( Auto) 3.2, Cannon # (Auto) 0.4, Eos # (Auto) 0.2, Baso # (Auto) 0.02 - RAD Interpretation Radiology Orders: 10/16/17 09:48 RIBS RIGHT & PA CHEST [RAD] Stat - Medication Orders Current Medication Orders: Discontinued Medications Aspirin (Aspirin) 325 mg PO STAT STA Stop: 10/16/17 09:29 Last Admin: 10/16/17 10:04 Dose: 325 mg Oxycodone/Acetaminophen (Percocet 5/325 Mg Tab) 1 tab PO STAT STA Stop: 10/16/17 12:11 Last Admin: 10/16/17 12:22 Dose: 1 tab MAR Pain Assessment Document 10/16/17 12:22 [facility] (Rec: 10/16/17 12:22 [facility]-[id number]) Pain Reassessment Is this a pain reassessment? Yes Disposition/Present on Arrival - Present on Arrival Any Indicators Present on Arrival: No History of DVT/PE: No History of Uncontrolled Diabetes: No Urinary Catheter: No History of Decub. Ulcer: No History Surgical Site Infection Following: None - Disposition Have Diagnosis and Disposition been Completed?: Yes Diagnosis: Rib pain Disposition: HOME/ ROUTINE Disposition Time: 12:30 Patient Plan: Discharge Condition: STABLE Discharge Instructions (ExitCare): Bruised Rib (DC) Additional Instructions: Follow up with your Doctor Return to ED for any new symptoms Prescriptions: Baclofen [Lioresal] 20 mg PO TID #12 tab Ibuprofen [Motrin Tab] 600 mg PO Q6 #20 tab traMADol [Ultram] 50 mg PO TID #9 tab Referrals: Alexandria Bailey, [Primary Care Provider] - Follow up with primary Forms: [employer] (Trinidadian)
[2017-10-16 12:49] VITALS: BP 121/72; PULSE 68; TEMP 98; O2SAT 97
--- NOTE | 2017-10-16 22:04 | CARD ---
APPROVED REPORT Date of service: 10/16/2017 EKG Measurement Heart [id number] <Conclusion> Normal sinus rhythm Normal ECG
== END 2017-10-16 12:48 | disposition home or self-care (01) ==
LOC: ED 08:59
DX: R07.81 Pleurodynia (principal); F17.210 Nicotine dependence, cigarettes, uncomplicated; Z86.73 Personal history of transient ischemic attack (TIA), and cerebral infarction without residual deficits

== ENCOUNTER 2018-01-08 12:17 | Emergency (ER) | payer OTHER ==
[2018-01-08 12:21] VITALS: BMI 34.9
[2018-01-08 12:23] VITALS: TEMP 98.6
--- NOTE | 2018-01-08 12:52 | ED PDOC ---
Arrival/HPI - General Chief Complaint: Chest Pain Time Seen by Provider: 01/08/18 12:42 Historian: Patient - History of Present Illness Narrative History of Present Illness (Text): 01/08/18 12:52 A 46 year old male, whose past medical history includes TIA, asthma, and arthritis, presents to the emergency department complaining of sharp chest pain and sore right-side rib pain since yesterday. Patient reports he has had pain in the ribs before, which resulted in being air pockets. States also the rib pain slightly radiates down to upper right leg. Patient denies any other complaints at this time. Also, patient notes he has a history of smoking/consuming alcohol, however denies any history of substance abuse. No PMD Past Medical History - Provider Review Nursing Documentation Reviewed: Yes - Infectious Disease Hx of Infectious Diseases: None - Tetanus Immunization Tetanus Immunization: Unknown - Cardiac Hx Cardiac Disorders: No - Pulmonary Hx Respiratory Disorders: Yes Hx Asthma: Yes - Neurological HX Cerebrovascular Accident: No Hx Transient Ischemic Attacks (TIA): Yes - HEENT Hx HEENT Disorder: No - Renal Hx Renal Disorder: No Hx Renal Failure: No - Endocrine/Metabolic Hx Endocrine Disorders: No Hx Diabetes Mellitus Type 1: No Hx Diabetes Mellitus Type 2: No Hx Hypothyroidism: No - Hematological/Oncological Hx Blood Disorders: No Hx AIDS: No Hx Anemia: No Hx Cancer: No Hx Chemotherapy: No Hx Cirrhosis: No Hx Hemophilia: No Hx Hepatitis A: No Hx Hepatitis B: No Hx Hepatitis C: No Hx Metastasis: No Hx Shingles: No Hx Sickle Cell Disease: No Hx Unexplained Bleeding: No - Integumentary Hx Dermatological Disorder: No Hx Basal Cell Carcinoma: No Hx Eczema: No Hx Melanoma: No Hx Psoriasis: No Hx Squamous Cell Carcinoma: No - Musculoskeletal/Rheumatological Hx Musculoskeletal Disorders: Yes Hx Arthritis: Yes - Gastrointestinal Hx Gastrointestinal Disorders: No Hx Colostomy: No Hx Crohn's Disease: No Hx Diverticulitis: No Hx Gall Bladder Disease: No Hx Gastroesophageal Reflux: No Hx Ileostomy: No Hx Liver Failure: No Hx Pancreatitis: No HX Swallowing Problems: No - Genitourinary/Gynecological Hx Genitourinary Disorders: No Hx Hematuria: No Hx Incontinence: No Hx Prostate Problems: No Hx Sexually Transmitted Diseases: No Hx Urinary Tract Infection: No - Psychiatric Hx Psychophysiologic Disorder: No Hx Depression: No Hx Emotional Abuse: No Hx Physical Abuse: No Hx Substance Use: No - Past Surgical History Past Surgical History: No Previous - Surgical History Hx Orthopedic Surgery: Yes (KNEE) - Anesthesia Hx Anesthesia: Yes Hx Anesthesia Reactions: No Hx Malignant Hyperthermia: No - Suicidal Assessment Feels Threatened In Home Enviroment: No Family/Social History - Physician Review Nursing Documentation Reviewed: Yes Family/Social History: CAD/[place] (father at age 56) Smoking Status: Light Smoker < 10 Cigarettes Daily Hx Alcohol Use: Yes Hx Substance Use: No Hx Substance Use Treatment: No Allergies/Home Meds Allergies/Adverse Reactions: Allergies No Known Allergies Allergy (Verified 10/16/17 09:08) Review of Systems - Physician Review All systems were reviewed & negative as marked: Yes - Review of Systems Cardiovascular: Chest Pain Musculoskeletal: Other (right-side pain, slightly radiates to upper right leg.) Physical Exam - Physical Exam Narrative Physical Exam (Text): Gen: VS reviewed, alert, well developed, well nourished, nontoxic, mild distress. ENT: normal pharynx. Eye: EOMI, PERRL. Neck: no JVD, supple, no adenopathy. Back. No CVA tenderness. CV: regular rate, regular rhythm, no rubs, no murmur, no gallops, S1, S2, pulses equal and strong. mild right lower anterior chest wall tenderness. Pulm: no distress, clear to auscultation, no wheeze, no rhonchi, breath sounds equal, no rales. Abd: soft, [id number] tenderness to RUQ, with some guarding, no rebound, no rigidity, normal bowel sounds. Ext: no edema. Skin: good color, no rash, no cyanosis. Psych: responds appropriately to questions, normal affect. Neuro: oriented x 3, CN2-12 intact grossly, motor intact, sensation intact. Vital Signs Reviewed: Yes Vital Signs Temp Pulse Resp BP Pulse Ox 01/08/18 12:21 98.6 F 88 18 134/86 99 Temperature: Afebrile Blood Pressure: Normal Pulse: Regular Respiratory Rate: Normal Appearance: Positive for: Well-Appearing, Non-Toxic, Comfortable Pain Distress: None Mental Status: Positive for: Alert and Oriented X 3 Medical Decision Making ED Course and Treatment: 01/08/18 12:53 Impression: 47 year old male with chest pain and right-side rib pain that slightly radiates to the upper right leg. Plan: -- EKG -- Chest X-ray -- Abd/Pelvis CT -- Labs -- Urinalysis -- Reassess and disposition Prior Visits: Notes and results from previous visits were reviewed. Patient was last seen in the emergency department on 10/16/2017 for right-sided rib pain. Progress Notes: 01/08/18 16:45 patient appears well, feel ok for discharge. will refer to clinic and patient agreeable to dc and to return immediately for any new or worsening symptoms. patient also to look out for rash of the right flank. ddx also includes radicular pain. - Lab Interpretations I have reviewed the lab results: Yes - RAD Interpretation Narrative RAD Interpretations (Text): 01/08/2018 14:13 Chest X-ray IMPRESSION: No active disease. Dictator: Leo Frias MD 01/08/2018 15:28 Abd/Pelvis CT IMPRESSION: Unremarkable pre and post contrast enhanced CT of the abdomen and pelvis. Normal appendix. Dictator: Jonny Michel MD Radiology Orders: 01/08/18 12:48 CHEST PORTABLE [RAD] Stat 01/08/18 12:49 ABDOMEN & PELVIS [ABD & PELVIS IV CONTRAST ONLY] [CT] Stat - EKG Interpretation EKG Interpretation (Text): 01/08/18 14:01 1229: nsr at 90 bpm, nml qrs, low voltage, no acute sttw abn Interpreted by ED Physician: Yes - Scribe Statement The provider has reviewed the documentation as recorded by the Morteza Carty Provider Scribe Attestation: All medical record entries made by the Aleaibfroylan were at my direction and personally dictated by me. I have reviewed the chart and agree that the record accurately reflects my personal performance of the history, physical exam, medical decision making, and the department course for this patient. I have also personally directed, reviewed, and agree with the discharge instructions and disposition. Disposition/Present on Arrival - Present on Arrival Any Indicators Present on Arrival: No History of DVT/PE: No History of Uncontrolled Diabetes: No Urinary Catheter: No History of Decub. Ulcer: No History Surgical Site Infection Following: None - Disposition Have Diagnosis and Disposition been Completed?: Yes Diagnosis: Flank pain Disposition: HOME/ ROUTINE Disposition Time: 16:46 Patient Plan: Discharge Condition: STABLE Discharge Instructions (ExitCare): Flank Pain Additional Instructions: Return for any new or worsening symptoms. PATRICK TAVAREZ, thank you for letting us take care of you today. Your provider was Dr. Bandar Weller and you were treated for flank pain. The emergency medical care you received today was directed at your acute symptoms. If you were prescribed any medication, please fill it and take as directed. It may take several days for your symptoms to resolve. Return to the Emergency Department if your symptoms worsen, do not improve, or if you have any other problems. Please contact your doctor or call one of the physicians/clinics you have been referred to that are listed on the Patient Visit Information form that is included in your discharge packet. Bring any paperwork you were given at discharge with you along with any medications you are taking to your follow up visit. Our treatment cannot replace ongoing medical care by a primary care pro vider outside of the emergency department. Thank you for allowing the [facility] team to be part of your care today. If you had an X-Ray or CT scan: A Radiologist will review the ED reading if any change in treatment is needed we will contact you. If you had a blood, urine, or wound culture: It will take several days for the results, if any change in treatment is needed we will contact you. If you had an STI test: It will take 48 hours for the results. Please call after 1 week if you have not heard back. Prescriptions: Ibuprofen [Motrin Tab] 600 mg PO QID #42 tab Referrals: [facility] [Outside] - Follow up with primary Tierar Yan MD [Medical Doctor] - Follow up with primary Forms: [employer] (Frisian), WORK NOTE
[2018-01-08 13:33] LABS: BASO # 0.03 K/mm3 (0.0-2.0); BASO % 0.3 % (0.0-3.0); EOS # 0.3 (0.0-0.7); EOS % 3.2 % (1.5-5.0); GRAN # 5.76 (1.4-6.5); GRAN % 57.8 % (50.0-68.0); HEMOGLOBIN 14.9 g/dL (14.0-18.0); LYMPH # 3.3 (1.2-3.4); LYMPH % 33.1 % (22.0-35.0); MEAN CELL VOLUME 87.7 fl (80.0-105.0); MEAN CORPUSCULAR HEMOGLOBIN 29.6 pg (25.0-35.0); MEAN CORPUSCULAR HGB CONC 33.7 g/dl (31.0-37.0); MEAN PLATELET VOLUME 10.3 fl (7.0-11.0); MONO # 0.6 (0.1-0.6); MONO % 5.6 % (1.0-6.0); RBC 5.04 10^6/uL (3.5-6.1); RED CELL DISTRIBUTION WIDTH 13.2 % (11.5-14.5)
[2018-01-08 13:40] LABS: INR 1.06; PARTIAL THROMBOPLASTIN TIME 34.3 Seconds (25.1-36.5); PROTHROMBIN TIME 12.2 SECONDS (9.4-12.5)
[2018-01-08 13:44] LABS: ALBUMIN 4.1 g/dL (3.0-4.8); BLOOD UREA NITROGEN 11 mg/dL (7-21); CALCIUM 9.5 mg/dL (8.4-10.5); GFR NON-AFRICAN AMERICAN > 60
[2018-01-08 13:45] LABS: ALB/GLOB RATIO 1.3 (1.1-1.8); ALT/SGPT 30 U/L (7-56); AST/SGOT 22 U/L (17-59); LIPASE 86 U/L (23-300)
[2018-01-08 13:54] LABS: TROPONIN I < 0.01 ng/mL
--- NOTE | 2018-01-08 14:17 | RAD ---
Date of service: 01/08/2018 HISTORY: chest pain COMPARISON: 05/16/2016 FINDINGS: LUNGS: No active pulmonary disease. PLEURA: No significant pleural effusion identified, no pneumothorax apparent. CARDIOVASCULAR: No aortic atherosclerotic calcification present. Normal cardiac size. No pulmonary vascular congestion. OSSEOUS STRUCTURES: No significant abnormalities. VISUALIZED UPPER ABDOMEN: Normal. OTHER FINDINGS: None. IMPRESSION: No active disease.
[2018-01-08 14:19] LABS: URINE BILIRUBIN NEGATIVE (NEGATIVE); URINE BLOOD NEGATIVE (NEGATIVE); URINE GLUCOSE (UA) NEGATIVE (NEGATIVE); URINE LEUKOCYTE ESTERASE NEGATIVE Leu/uL (NEGATIVE); URINE PROTEIN NEGATIVE mg/dL (<30 mg/dL); URINE UROBILINOGEN 0.2 E.U./dL (<1 E.U./dL)
[2018-01-08 14:20] LABS: URINE APPEARANCE CLEAR (CLEAR); URINE COLOR YELLOW (YELLOW)
--- NOTE | 2018-01-08 15:32 | CT ---
Date of service: 01/08/2018 PROCEDURE: CT Abdomen and Pelvis with and without intravenous contrast HISTORY: RLQ pain, appendicitis COMPARISON: None. TECHNIQUE: Axial images of the abdomen were obtained in the pre contrast, portal venous and delayed phases of enhancement. Coronal and sagittal reformats were generated. Contrast dose: Radiation dose: Total exam DLP = 1096.82 mGy-cm. This CT exam was performed using one or more of the following dose reduction techniques: Automated exposure control, adjustment of the mA and/or kV according to patient size, and/or use of iterative reconstruction technique. FINDINGS: LOWER THORAX: Unremarkable. LIVER: Unremarkable. No gross lesion or ductal dilatation. GALLBLADDER AND BILE DUCTS: Unremarkable. PANCREAS: Unremarkable. No gross lesion or ductal dilatation. SPLEEN: Unremarkable. ADRENALS: Unremarkable. No mass. KIDNEYS AND URETERS: Unremarkable. No hydronephrosis. No solid mass. VASCULATURE: Unremarkable. No aortic aneurysm. No aortic atherosclerotic calcification or mural plaque present. BOWEL: Unremarkable. No obstruction. No gross mural thickening. APPENDIX: Normal appendix. PERITONEUM: Unremarkable. No free fluid. No free air. LYMPH NODES: Unremarkable. No enlarged lymph nodes. BLADDER: Unremarkable. REPRODUCTIVE: Unremarkable. BONES: No acute fracture. OTHER FINDINGS: None. IMPRESSION: Unremarkable pre and post contrast enhanced CT of the abdomen and pelvis.Normal appendix.
[2018-01-08 15:39] VITALS: BP 118/75; PULSE 83; RESP 16; O2SAT 96
--- NOTE | 2018-01-08 19:21 | CARD ---
APPROVED REPORT Date of service: 01/08/2018 EKG Measurement Heart [id number] <Conclusion> Normal sinus rhythm Cannot rule out Anterior infarct, age undetermined Abnormal ECG
== END 2018-01-08 16:55 | disposition home or self-care (01) ==
LOC: ED 12:17
DX: R10.9 Unspecified abdominal pain (principal); J45.909 Unspecified asthma, uncomplicated; Z86.73 Personal history of transient ischemic attack (TIA), and cerebral infarction without residual deficits; Z82.49 Family history of ischemic heart disease and other diseases of the circulatory system; F17.210 Nicotine dependence, cigarettes, uncomplicated
CPT/HCPCS: 71045; 74177; 80053; 81003; 83690; 84484; 85025; 85610; 85730; 93005; 99283; Q9967

== ENCOUNTER 2018-01-20 21:47 | Emergency (ER) | payer OTHER ==
[2018-01-20 21:48] VITALS: BMI 34.9
[2018-01-20 21:53] VITALS: RESP 20; TEMP 97.5
[2018-01-20] MEDS: Albuterol-Ipratrop 3 mg / 0.5 (3 ml) UD IH SCH ×3 (22:00→22:24)
--- NOTE | 2018-01-20 22:04 | ED PDOC ---
Arrival/HPI - General Chief Complaint: Respiratory Distress Historian: Patient - History of Present Illness Narrative History of Present Illness (Text): 01/20/18 22:01 47 y/o male, pmh including asthma, nkda, c/o coughing x 1 week. Pt. stated that he has URI like symptoms for 1 week, coughing with wheezing, wheezing started about 1 hour ago, out of the albuterol MDI, no fever or chills, no palpitation, no rash, no numbness or tingling, no dizziness, no change in vision, no chest pain, no other medical or psychological complaints. Past Medical History - Provider Review Nursing Documentation Reviewed: Yes - Infectious Disease Hx of Infectious Diseases: None - Tetanus Immunization Tetanus Immunization: Unknown - Cardiac Hx Cardiac Disorders: No - Pulmonary Hx Respiratory Disorders: Yes Hx Asthma: Yes - Neurological HX Cerebrovascular Accident: No Hx Transient Ischemic Attacks (TIA): Yes - HEENT Hx HEENT Disorder: No - Renal Hx Renal Disorder: No Hx Renal Failure: No - Endocrine/Metabolic Hx Endocrine Disorders: No Hx Diabetes Mellitus Type 1: No Hx Diabetes Mellitus Type 2: No Hx Hypothyroidism: No - Hematological/Oncological Hx Blood Disorders: No Hx AIDS: No Hx Anemia: No Hx Cancer: No Hx Chemotherapy: No Hx Cirrhosis: No Hx Hemophilia: No Hx Hepatitis A: No Hx Hepatitis B: No Hx Hepatitis C: No Hx Metastasis: No Hx Shingles: No Hx Sickle Cell Disease: No Hx Unexplained Bleeding: No - Integumentary Hx Dermatological Disorder: No Hx Basal Cell Carcinoma: No Hx Eczema: No Hx Melanoma: No Hx Psoriasis: No Hx Squamous Cell Carcinoma: No - Musculoskeletal/Rheumatological Hx Musculoskeletal Disorders: Yes Hx Arthritis: Yes - Gastrointestinal Hx Gastrointestinal Disorders: No Hx Colostomy: No Hx Crohn's Disease: No Hx Diverticulitis: No Hx Gall Bladder Disease: No Hx Gastroesophageal Reflux: No Hx Ileostomy: No Hx Liver Failure: No Hx Pancreatitis: No HX Swallowing Problems: No - Genitourinary/Gynecological Hx Genitourinary Disorders: No Hx Hematuria: No Hx Incontinence: No Hx Prostate Problems: No Hx Sexually Transmitted Diseases: No Hx Urinary Tract Infection: No - Psychiatric Hx Psychophysiologic Disorder: No Hx Depression: No Hx Emotional Abuse: No Hx Physical Abuse: No Hx Substance Use: No - Past Surgical History Past Surgical History: No Previous - Surgical History Hx Orthopedic Surgery: Yes (KNEE) - Anesthesia Hx Anesthesia: Yes Hx Anesthesia Reactions: No Hx Malignant Hyperthermia: No - Suicidal Assessment Feels Threatened In Home Enviroment: No Family/Social History - Physician Review Nursing Documentation Reviewed: Yes Family/Social History: Unknown Family HX Smoking Status: Light Smoker < 10 Cigarettes Daily Hx Alcohol Use: Yes Hx Substance Use: No Hx Substance Use Treatment: No Allergies/Home Meds Allergies/Adverse Reactions: Allergies No Known Allergies Allergy (Verified 10/16/17 09:08) Review of Systems - Review of Systems Constitutional: absent: Fatigue, Fevers Eyes: absent: Vision Changes ENT: absent: Hearing Changes Respiratory: Cough, Sputum, Wheezing. absent: SOB Cardiovascular: absent: Chest Pain Gastrointestinal: absent: Abdominal Pain, Nausea, Vomiting Musculoskeletal: absent: Arthralgias, Back Pain Skin: absent: Rash, Pruritis Neurological: absent: Headache, Dizziness Psychiatric: absent: Anxiety, Depression, Suicidal Ideation Physical Exam Vital Signs Reviewed: Yes Vital Signs Temp Pulse Resp BP Pulse Ox 01/20/18 21:51 97.5 F L 98 H 20 135/89 99 Temperature: Afebrile Blood Pressure: Normal Pulse: Regular Respiratory Rate: Normal Appearance: Positive for: Well-Appearing, Non-Toxic, Comfortable Pain Distress: None Mental Status: Positive for: Alert and Oriented X 3 - Systems Exam Head: Present: Atraumatic, Normocephalic Pupils: Present: PERRL Extroacular Muscles: Present: EOMI Conjunctiva: Present: Normal Mouth: Present: Moist Mucous Membranes Neck: Present: Normal Range of Motion Respiratory/Chest: Present: Wheezes, Decreased Breath Sounds, Rhonchi. No: Respiratory Distress, Accessory Muscle Use, Rales, Retracting, Tachypneic, Tender to Palpation Cardiovascular: Present: Regular Rate and Rhythm, Normal S1, S2. No: Murmurs Abdomen: No: Tenderness, Distention, Peritoneal Signs Back: Present: Normal Inspection Upper Extremity: Present: Normal Inspection. No: Cyanosis, Edema Lower Extremity: Present: Normal Inspection. No: Edema Neurological: Present: GCS=15, CN II-XII Intact, Speech Normal Skin: Present: Warm, Dry, Normal Color. No: Rashes Psychiatric: Present: Alert, Oriented x 3, Normal Insight, Normal Concentration Medical Decision Making ED Course and Treatment: 01/20/18 22:05 -med -cxr -observe and reassess 01/20/18 22:45 -Chest xray show no active disease. -Wheezing resolved, bilateral clear to auscultate with no wheezing/crackles/ rhonchis. -All labs/radiology result discussed, zithromax and prednisone ordered, request to be discharged home. -Discharge home with zithromax, prednisone, singulair, albuterol MDI, stay hydrated, follow up with your own pmd within 2 days, return to the ER for any new or worsening signs or symptoms. - RAD Interpretation Radiology Orders: 01/20/18 22:00 CHEST PORTABLE [RAD] Stat Date of service: 01/20/2018 HISTORY: medical clearance COMPARISON: 01/08/2018 FINDINGS: LUNGS: No active pulmonary disease. PLEURA: No significant pleural effusion identified, no pneumothorax apparent. CARDIOVASCULAR: No aortic atherosclerotic calcification present. Normal cardiac size. No pulmonary vascular congestion. OSSEOUS STRUCTURES: No significant abnormalities. VISUALIZED UPPER ABDOMEN: Normal. OTHER FINDINGS: None. IMPRESSION: No active disease. Photo Mask Pattern Generator: Radiologist - PA / FISHER SWORDFISH / Resident Statement MD/DO has reviewed & agrees with the documentation as recorded. Disposition/Present on Arrival - Present on Arrival Any Indicators Present on Arrival: No History of DVT/PE: No History of Uncontrolled Diabetes: No Urinary Catheter: No History of Decub. Ulcer: No History Surgical Site Infection Following: None - Disposition Have Diagnosis and Disposition been Completed?: Yes Diagnosis: Bronchitis, Asthma Disposition: HOME/ ROUTINE Disposition Time: 22:47 Patient Plan: Discharge Condition: IMPROVED Additional Instructions: Discharge home with zithromax, prednisone, singulair, albuterol MDI, stay hyd rated, follow up with your own pmd within 2 days, return to the ER for any new or worsening signs or symptoms. Prescriptions: Albuterol HFA [Ventolin HFA 90 mcg/actuation (8 g)] 2 puff IH [id number] PRN #1 in PRN Reason: Other Azithromycin [Zithromax] 250 mg PO DAILY #4 tab Montelukast Sodium [Singulair] 10 mg PO DAILY #10 tablet Prednisone 50 mg PO DAILY #4 tablet Referrals: FAMILY PROVIDER,NO [Primary Care Provider] - Follow up with primary Placido Robledo MD [Staff Provider] - Follow up with primary Forms: [employer] (Kyrgyz), WORK NOTE
[2018-01-20 22:44] VITALS: BP 122/81; PULSE 89; O2SAT 95
--- NOTE | 2018-01-21 09:40 | RAD ---
Date of service: 01/20/2018 HISTORY: medical clearance COMPARISON: 01/08/2018 FINDINGS: LUNGS: No active pulmonary disease. PLEURA: No significant pleural effusion identified, no pneumothorax apparent. CARDIOVASCULAR: No aortic atherosclerotic calcification present. Normal cardiac size. No pulmonary vascular congestion. OSSEOUS STRUCTURES: No significant abnormalities. VISUALIZED UPPER ABDOMEN: Normal. OTHER FINDINGS: None. IMPRESSION: No active disease.
== END 2018-01-20 23:00 | disposition home or self-care (01) ==
LOC: ED 21:47
DX: J45.909 Unspecified asthma, uncomplicated (principal); F17.210 Nicotine dependence, cigarettes, uncomplicated

== ENCOUNTER 2018-04-12 23:57 | Emergency (ER) | payer OTHER, MEDICAID ==
[2018-04-12 23:57] VITALS: BMI 34.9
[2018-04-13] MEDS ORDERED: Promethazine DM 6.25 mg-15 mg/5 ml Syrup PO STA (00:19)
--- NOTE | 2018-04-13 00:19 | ED PDOC ---
Arrival/HPI - General Historian: Patient - History of Present Illness Narrative History of Present Illness (Text): 04/13/18 00:16 47yo male with no pmhx who present with complaint of greenish productive cough, chills, bodyache, sore throat, headache x 2days. States he vomited once tonight. Notes that his children was treated for flu 2weeks ago. Denies abdominal pain, diarrhea, constipation, chest pain, SOB, diaphoresis, travel, night sweats, any other complaint. <Alexis Wan - Last Filed: 04/13/18 01:31> <Jonny Reyes - Last Filed: 04/13/18 01:47> - General Chief Complaint: GI Problem Past Medical History - Provider Review Nursing Documentation Reviewed: Yes - Infectious Disease Hx of Infectious Diseases: None - Tetanus Immunization Tetanus Immunization: Unknown - Cardiac Hx Cardiac Arrhythmia: No Hx Congestive Heart Failure: No Hx Hypertension: No Hx Mitral Valve Prolapse: No Hx Pacemaker: No Hx Peripheral Edema: No - Pulmonary Hx Asthma: Yes Hx Bronchitis: Yes Hx Chronic Obstructive Pulmonary Disease (COPD): No Hx Emphysema: No Hx Pneumonia: No Hx Sleep Apnea: No - Neurological Hx Alzheimer's Disease: No Hx Dementia: No Hx Migraine: No Hx Parkinson's Disease: No Hx Seizures: No Hx Transient Ischemic Attacks (TIA): Yes - HEENT Hx HEENT Disorder: No - Renal Hx Renal Disorder: No Hx Kidney Stones: No - Endocrine/Metabolic Hx Hyperthyroidism: No Hx Hypothyroidism: No - Hematological/Oncological Hx Anemia: No Hx Sickle Cell Disease: No - Integumentary Hx Dermatological Disorder: No Hx Basal Cell Carcinoma: No Hx Eczema: No Hx Melanoma: No Hx Psoriasis: No Hx Squamous Cell Carcinoma: No - Musculoskeletal/Rheumatological Hx Arthritis: Yes Hx Fractures: Yes (3rd toe left leg) Hx Osteoporosis: No - Gastrointestinal Hx Crohn's Disease: No Hx Diverticulitis: No Hx Gall Bladder Disease: No Hx Gastrointestinal Ulcer: No Hx Pancreatitis: No - Genitourinary/Gynecological Hx Sexually Transmitted Diseases: No - Psychiatric Hx Anxiety: No Hx Bipolar Disorder: No Hx Depression: No Hx Post Traumatic Stress Disorder: No Hx Schizophrenia: No Hx Substance Use: No - Past Surgical History Past Surgical History: No Previous - Surgical History Hx Coronary Stent: No - Anesthesia Hx Anesthesia: Yes Hx Anesthesia Reactions: No Hx Malignant Hyperthermia: No - Suicidal Assessment Feels Threatened In Home Enviroment: No <Alexis Wan - Last Filed: 04/13/18 01:31> Family/Social History - Physician Review Nursing Documentation Reviewed: Yes Family/Social History: Unknown Family HX Smoking Status: Light Smoker < 10 Cigarettes Daily Hx Alcohol Use: Yes Hx Substance Use: No Hx Substance Use Treatment: No <Alexis Wan - Last Filed: 04/13/18 01:31> Allergies/Home Meds <Alexis Wan - Last Filed: 04/13/18 01:31> <AmyJonny - Last Filed: 04/13/18 01:47> Allergies/Adverse Reactions: Allergies No Known Allergies Allergy (Verified 10/16/17 09:08) Review of Systems - Physician Review All systems were reviewed & negative as marked: Yes - Review of Systems Constitutional: Fatigue Eyes: Normal ENT: Normal Respiratory: Cough, Sputum. absent: SOB, Wheezing Cardiovascular: Normal Gastrointestinal: Vomiting. absent: Abdominal Pain, Constipation, Diarrhea, Nausea, Hematochezia, Hematemesis Genitourinary Male: Normal Musculoskeletal: Normal Skin: Normal Neurological: Normal Endocrine: Normal Hemo/Lymphatic: Normal Psychiatric: Normal <Alexis Wan A - Last Filed: 04/13/18 01:31> Physical Exam Vital Signs Reviewed: Yes Temperature: Afebrile Blood Pressure: Normal Pulse: Regular Respiratory Rate: Normal Appearance: Positive for: Well-Appearing, Non-Toxic, Comfortable Pain Distress: None Mental Status: Positive for: Alert and Oriented X 3 - Systems Exam Head: Present: Atraumatic, Normocephalic Pupils: Present: PERRL Extroacular Muscles: Present: EOMI Conjunctiva: Present: Normal Ears: Present: Normal Mouth: Present: Moist Mucous Membranes Pharnyx: Present: Normal. No: ERYTHEMA, EXUDATE, TONSILS ENLARGED Neck: Present: Normal Range of Motion Respiratory/Chest: Present: Clear to Auscultation, Good Air Exchange. No: Respiratory Distress, Accessory Muscle Use, Wheezes, Decreased Breath Sounds, Rales, Retracting, Rhonchi, Tachypneic Cardiovascular: Present: Regular Rate and Rhythm, Normal S1, S2. No: Murmurs Abdomen: Present: Normal Bowel Sounds, Other (Soft). No: Tenderness, Distention, Peritoneal Signs, Rebound, Guarding, McBurney's Point Tender, Rovsing's Sign Present Back: Present: Normal Inspection Upper Extremity: Present: Normal Inspection. No: Cyanosis, Edema Lower Extremity: Present: Normal Inspection. No: Edema Neurological: Present: GCS=15, CN II-XII Intact, Speech Normal Skin: Present: Warm, Dry, Normal Color. No: Rashes Psychiatric: Present: Alert, Oriented x 3, Normal Insight, Normal Concentration <Alexis Wan A - Last Filed: 04/13/18 01:31> Vital Signs Temp Pulse Resp BP Pulse Ox 04/13/18 00:21 97.6 F 80 18 125/78 96 <Jonny Reyes - Last Filed: 04/13/18 01:47> Medical Decision Making ED Course and Treatment: 04/13/18 01:31 47yo male in ED for stated history. He was hemodynamically stable. Rapid flu CXR Promethazine, Ibuprofen, Zofran Rapid flu was negative CXR NAD Result was DW. He was noted to tolerate PO in ED He will be DC home with Robitussin, Ibuprofen and Zofran Advised to drink plenty of fluid and rest Referred to his PMD - RAD Interpretation Radiology Orders: 04/13/18 00:15 CHEST TWO VIEWS (PA/LAT) [RAD] Stat <Alexis Wan A - Last Filed: 04/13/18 01:31> - RAD Interpretation Radiology Orders: 04/13/18 00:15 CHEST TWO VIEWS (PA/LAT) [RAD] Stat - Medication Orders Current Medication Orders: Discontinued Medications Ibuprofen (Motrin Tab) 600 mg PO STAT STA Stop: 04/13/18 00:16 Last Admin: 04/13/18 00:30 Dose: 600 mg Ondansetron HCl (Zofran Odt) 4 mg PO STAT STA Stop: 04/13/18 00:16 Last Admin: 04/13/18 00:30 Dose: 4 mg Promethazine HCl/Dextromethorphan (Phenergan Dm Syrup) 5 ml PO STAT STA Stop: 04/13/18 00:20 Last Admin: 04/13/18 00:30 Dose: 5 ml <Jonny Reyes - Last Filed: 04/13/18 01:47> - PA / [employer]ICA BUILDER / Resident Statement / has reviewed & agrees with the documentation as recorded. <Jonny Reyes - Last Filed: 04/13/18 01:47> Disposition/Present on Arrival - Present on Arrival Any Indicators Present on Arrival: No History of DVT/PE: No History of Uncontrolled Diabetes: No Urinary Catheter: No History of Decub. Ulcer: No History Surgical Site Infection Following: None - Disposition Have Diagnosis and Disposition been Completed?: Yes Disposition Time: 01:40 Patient Plan: Discharge <Alexis Wan - Last Filed: 04/13/18 01:31> <AmyJonny - Last Filed: 04/13/18 01:47> - Disposition Diagnosis: Vomiting, Flu-like symptoms Disposition: HOME/ ROUTINE Condition: STABLE Discharge Instructions (ExitCare): Nausea and Vomiting, Adult, Cough, Runny Nose, and the Common Cold, Viral Syndrome (DC) Additional Instructions: Drink plenty of fluid and rest Follow up with your Doctor Return to ED for any new or worsening symptoms Prescriptions: guaiFENesin/Dextromethorphan [Guaifenesin-Dm 10 MG/5 Ml-100 MG/5 Ml 5 Ml] 118 ml PO Q6 #5 udc Ibuprofen [Motrin Tab] 600 mg PO Q6 #15 tab Ondansetron ODT [Zofran ODT] 4 mg PO Q6 #7 odt Referrals: Tierra Yan MD [Medical Doctor] - Follow up with primary Forms: [employer] ([place]), WORK NOTE
[2018-04-13 00:22] VITALS: TEMP 97.6
[2018-04-13 00:56] LABS: INFLUENZA A B NEGATIVE FOR FLU A/B (NEGATIVE)
[2018-04-13 02:03] VITALS: BP 118/79; PULSE 72; RESP 20; O2SAT 100
--- NOTE | 2018-04-13 09:30 | RAD ---
Date of service: 04/13/2018 HISTORY: cough COMPARISON: 01/20/2018 TECHNIQUE: Chest PA and lateral FINDINGS: LUNGS: No active pulmonary disease. PLEURA: No significant pleural effusion identified. No pneumothorax apparent. CARDIOVASCULAR: No aortic atherosclerotic calcification present. Normal cardiac size. No pulmonary vascular congestion. OSSEOUS STRUCTURES: No significant abnormalities. VISUALIZED UPPER ABDOMEN: Normal. OTHER FINDINGS: None. IMPRESSION: No active disease.
== END 2018-04-13 01:50 | disposition home or self-care (01) ==
LOC: ED 23:57
DX: J11.1 Influenza due to unidentified influenza virus with other respiratory manifestations (principal); R11.10 Vomiting, unspecified; J45.909 Unspecified asthma, uncomplicated; Z86.73 Personal history of transient ischemic attack (TIA), and cerebral infarction without residual deficits; F17.210 Nicotine dependence, cigarettes, uncomplicated